=== PATIENT | male | born 1990 | race African-American/Black ===

== ENCOUNTER 2024-06-05 04:51 | Emergency (ER) | payer MEDICAID | END 2024-06-05 05:39 | disposition home or self-care (01) | LOC: CSHERS 04:51 | DX: Z00.00 Encounter for general adult medical examination without abnormal findings (principal) | CPT/HCPCS: 99282 ==

== ENCOUNTER 2024-08-10 13:16 | Emergency (ER) | payer MEDICAID, OTHER, SELFPAY ==
[2024-08-10] MEDS ORDERED: Lidocaine 1% w/Epinephrine 1:200K 30 ML VIAL ONE (13:52)
== END 2024-08-10 15:40 | disposition home or self-care (01) ==
LOC: CSHERS 13:16
DX: S01.21XA Laceration without foreign body of nose, initial encounter (principal); S09.90XA Unspecified injury of head, initial encounter; Y04.0XXA Assault by unarmed brawl or fight, initial encounter; Y93.89 Activity, other specified
CPT/HCPCS: 12011; 70450; 70486